=== PATIENT | male | born 1955 | race Caucasian/White ===

== ENCOUNTER 2017-02-04 21:58 | Inpatient (IN) | payer OTHER ==
[~2017-02-04] VITALS: Ht 180.3 cm; Wt 72.3 kg
[~2017-02-04 21:58] MED LIST: BACT800T5 PO; CEPH500C3 PO; Z.0.NO CURRENT MEDS
[2017-02-04 22:00] VITALS: BP 123/80; PULSE 80; RESP 16; TEMP 98.5; O2SAT 96
[2017-02-04 22:40] VITALS: BP 120/79; PULSE 78; RESP 16; O2SAT 98
--- NOTE | 2017-02-05 00:38 | PD ---
HPI Chief Complaint: Skin Problem Time Seen by Provider: 00:34 Travel History International Travel<30 days: No Contact w/Intl Traveler<30days: No Traveled to known affect area: No History of Present Illness HPI 61-year-old male with chronic recurrent left lower extremity cellulitis. Recurrence over the past several days. Patient has ulceration just proximal to the medial malleolus. Patient denies fever chills nausea vomiting ascending erythema or left groin lymphadenopathy. Patient is not diabetic. Patient has history of recurrent cellulitis of the lower extremity on the left ankle. Patient also has prior history of atrial fibrillation. Patient takes no blood thinning agents. PFS Past Medical History Narrative Medical Cellulitis atrial fibrillation; no tobacco use; nursing notes reviewed Atrial Fibrillation: Yes Cardiovascular Problems: Yes Diminished Hearing: No Past Surgical History Abdominal Surgery: No Cardiac Surgery: No Ear Surgery: No Endocrine Surgery: No Eye Surgery: No Oral Surgery: No Thoracic Surgery: No Other Surgery: Yes Social History Alcohol Use: No Tobacco Use: No Substance Use: No Allergies-Medications (Allergen,Severity, Reaction): Coded Allergies: vancomycin (Unverified Allergy, Severe, RASH, 02/04/17) Reported Meds & Prescriptions Reported Meds & Active Scripts Active Review of Systems Except as stated in HPI: all other systems reviewed are Neg Physical Exam Narrative GENERAL: Well-developed well-nourished male in no acute distress no respiratory distress SKIN: Warm and dry. HEAD: Normocephalic. EYES: No scleral icterus. No injection or drainage. NECK: Supple, trachea midline. No JVD or lymphadenopathy. CARDIOVASCULAR: Regular rate and rhythm without murmurs, gallops, or rubs. RESPIRATORY: Breath sounds equal bilaterally. No accessory muscle use. GASTROINTESTINAL: Abdomen soft, non-tender, nondistended. MUSCULOSKELETAL: No cyanosis, or edema. Attention left lower leg area of erythema and warmth with 3 cm x 2.5 cm superficial ulceration just proximal to the left medial malleolus. BACK: Nontender without obvious deformity. No CVA tenderness. Data Data Last Documented VS Vital Signs Date Time Temp Pulse Resp B/P (MAP) Pulse Ox O2 Delivery O2 Flow Rate FiO2 02/04/17 22:40 78 16 120/79 (93) 98 Room Air 02/04/17 22:00 98.5 Orders Orders Basic Metabolic Panel (Bmp) (02/05/17 00:34) Complete Blood Count With Diff (02/05/17 00:34) Blood Culture (02/05/17 00:34) Wound Culture And Gram Stain (02/05/17 00:34) Iv Access Insert/Monitor (02/05/17 00:34) Ketorolac Inj (Toradol Inj) (02/05/17 00:45) Clindamycin Inj (Cleocin Inj) (02/05/17 00:45) Ankle, Complete ([id number]) (02/05/17 ) Labs Laboratory Tests Test 02/05/17 00:45 White Blood Count 5.5 TH/MM3 Red Blood Count 4.23 MIL/MM3 Hemoglobin 13.3 GM/DL Hematocrit 38.3 % Mean Corpuscular Volume 90.5 FL Mean Corpuscular Hemoglobin 31.3 PG Mean Corpuscular Hemoglobin Concent 34.6 % Red Cell Distribution Width 13.2 % Platelet Count 222 TH/MM3 Mean Platelet Volume 9.3 FL Neutrophils (%) (Auto) 67.2 % Lymphocytes (%) (Auto) 21.0 % Monocytes (%) (Auto) 7.8 % Eosinophils (%) (Auto) 3.2 % Basophils (%) (Auto) 0.8 % Neutrophils # (Auto) 3.7 TH/MM3 Lymphocytes # (Auto) 1.2 TH/MM3 Monocytes # (Auto) 0.4 TH/MM3 Eosinophils # (Auto) 0.2 TH/MM3 Basophils # (Auto) 0.0 TH/MM3 CBC Comment DIFF FINAL Differential Comment Blood Urea Nitrogen 27 MG/DL Creatinine 1.13 MG/DL Random Glucose 91 MG/DL Calcium Level 8.5 MG/DL Sodium Level 138 MEQ/L Potassium Level 4.0 MEQ/L Chloride Level 104 MEQ/L Carbon Dioxide Level 26.4 MEQ/L Anion Gap 8 MEQ/L Estimat Glomerular Filtration Rate 66 ML/MIN MDM Medical Decision Making Medical Screen Exam Complete: Yes Emergency Medical Condition: Yes Medical Record Reviewed: Yes Interpretation(s) ankle xr: FINDINGS: There is diffuse soft tissue swelling and edema of the left ankle and visualized leg. There appears to be some posteromedial ulceration at the level of the ankle. There is an 11 mm area of cortical irregularity and focal adjacent trabecular lucency of the medial malleolus noted and an area of osteomyelitis is possible. Otherwise, there is mild, chronic appearing and diffuse periosteal reaction of the visualized right tibia and fibula, probably on the basis of chronic disease. CONCLUSION: 1. Diffuse soft tissue swelling/edema and an apparent posteromedial ulcer. 2. Small focus of osteomyelitis of the medial malleolus possible in the proper clinical setting. Mayito Vega MD on February 05, 2017 at 1:21 Board Certified Radiologist. This report was verified electronically. Vital Signs Date Time Temp Pulse Resp B/P (MAP) Pulse Ox O2 Delivery O2 Flow Rate FiO2 02/04/17 22:40 78 16 120/79 (93) 98 Room Air 02/04/17 22:00 98.5 80 16 123/80 (94) 96 Room Air CBC & BMP Diagram 02/05/17 00:45 Calcium Level 8.5 Differential Diagnosis Cellulitis infected stasis ulcer abscess osteomyelitis Narrative Course IV access obtained specimens collected and sent for resulting patient given clindamycin 900 mg IV piggyback Physician Communication Physician Communication call placed to [facility] Diagnosis Primary Impression: Cellulitis Qualified Codes: L03.116 - Cellulitis of left lower limb Additional Impression: Osteomyelitis Qualified Codes: M86.9 - Osteomyelitis, unspecified Admitting Information Admitting Physician Requests: Admit Calista Hutchinson MD Feb 05, 2017 00:38
[2017-02-05] MEDS ORDERED: KETOROLAC TROMETHAMINE 30 MG/ML (IVP) VIAL IVP ONE (00:45)
[2017-02-05] MEDS ORDERED: CLINDAMYCIN INJ 900 MG in SODIUM CHLORIDE 0.9% INJ 100 ML IV ONE (00:45)
--- NOTE | 2017-02-05 01:25 | RADRPT ---
EXAM DATE/TIME: 02/05/2017 00:57 [facility] COMPARISON: No previous studies available for comparison. INDICATIONS : Cellulitis. MEDICAL HISTORY : cellulitis of the left ankle SURGICAL HISTORY : None. ENCOUNTER: Initial ACUITY: >1 year PAIN SCORE: 6/10 LOCATION: Left ankle FINDINGS: There is diffuse soft tissue swelling and edema of the left ankle and visualized leg. There appears t o be some posteromedial ulceration at the level of the ankle. There is an 11 mm area of cortical irre gularity and focal adjacent trabecular lucency of the medial malleolus noted and an area of osteomyel itis is possible. Otherwise, there is mild, chronic appearing and diffuse periosteal reaction of the visualized right tibia and fibula, probably on the basis of chronic disease. CONCLUSION: 1. Diffuse soft tissue swelling/edema and an apparent posteromedial ulcer. 2. Small focus of osteomyelitis of the medial malleolus possible in the proper clinical setting. Mayito Vega MD on February 05, 2017 at 1:21 Board Certified Radiologist. This report was verified electronically.
[2017-02-05 01:29] LABS: AUTOMATED NEUTROPHIL # 3.7 TH/MM3 (1.8-7.7); BASOPHIL % 0.8 % (0.0-2.0); EOSINOPHIL # 0.2 TH/MM3 (0-0.4); EOSINOPHIL % 3.2 % (0.0-4.0); HEMATOCRIT 38.3 % (39.0-51.0); HEMO FLAGS DIFF FINAL; LYMPHOCYTE # 1.2 TH/MM3 (1.0-4.8); MEAN CELL VOLUME 90.5 FL (80.0-100.0); MEAN CORPUSCULAR HEMOGLOBIN 31.3 PG (27.0-34.0); MEAN CORPUSCULAR HGB CONC 34.6 % (32.0-36.0); MONO % 7.8 % (0.0-8.0); NEUT % 67.2 % (16.0-70.0); PLATELET COUNT 222 TH/MM3 (150-450); RED BLOOD COUNT 4.23 MIL/MM3 (4.50-5.90); RED CELL DISTRIBUTION WIDTH 13.2 % (11.6-17.2); WHITE BLOOD COUNT 5.5 TH/MM3 (4.0-11.0)
[2017-02-05 01:36] LABS: BICARBONATE 26.4 MEQ/L (21.0-32.0)
[2017-02-05] MEDS ORDERED: MORPHINE SULFATE 4 MG/ML INJ IV PUSH PRN (03:15)
[2017-02-05] MEDS ORDERED: ACETAMINOPHEN 325 MG TAB PO PRN (03:15)
[2017-02-05] MEDS ORDERED: MAGNESIUM HYDROXIDE SUSP 30 ML CUP PO PRN (03:15)
[2017-02-05] MEDS ORDERED: BISACODYL 10 MG SUPP RECTAL PRN (03:15)
[2017-02-05] MEDS ORDERED: LACTULOSE SYRUP 20 GM/30 ML CUP PO PRN (03:15)
[2017-02-05] MEDS ORDERED: ONDANSETRON HCL 4 MG/2 ML VIAL IVP PRN (03:15)
[2017-02-05] MEDS ORDERED: ACETAMINOPHEN/HYDROcodone 325 MG/5 MG TAB PO PRN (03:15)
[2017-02-05] MEDS ORDERED: SODIUM CHLORIDE 0.9% FLUSH 10 ML FLUSH IV FLUSH PRN (03:15)
[2017-02-05] MEDS ORDERED: SENNOSIDES 8.6 MG TAB PO PRN (03:15)
--- NOTE | 2017-02-05 03:55 | HHI.HP ---
HPI Service [facility] Primary Care Physician No Primary Care Physician Admission Diagnosis Diagnoses: (1) Cellulitis Diagnosis: Principal (2) Osteomyelitis Diagnosis: Principal (3) Dehydration Diagnosis: Principal Travel History International Travel<30 Days: No Contact w/Intl Traveler <30 Da: No Traveled to Known Affected Are: No History of Present Illness This is a 61-year-old male with a PMH of A. fib and Chronic Left Leg Cellulitis who presented to the ER with complaints of left leg redness/pain for 2-3 days. States has had chronic cellulitis of left leg/ankle for several years, normally well-controlled however has been getting progressively worse over last few days. Denies fever or chills. On arrival, BP 123/80, HR 80, O2 sat 96% on RA, Afebrile. CBC unremarkable. GFR 66. BUN 27. Ankle X-ray with diffuse soft tissue swelling/edema and apparent posterior medial ulcer, small focus of osteomyelitis of medial malleolus possible. S/p Blood Cultures and Clinda IV in ER. Review of Systems Except as stated in HPI: all other systems reviewed are Neg ROS: 14 point review of systems otherwise negative. Past Family Social History Past Medical History PMH: A. fib and Chronic Left Leg Cellulitis Past Surgical History PAST SURGICAL HISTORY: Left Leg Surgery Allergies: Coded Allergies: vancomycin (Unverified Allergy, Severe, RASH, 02/04/17) Family History PAST FAMILY HISTORY: Reviewed. No h/o DM or CAD Social History PAST SOCIAL HISTORY: Negative for alcohol, tobacco or drugs. Physical Exam Vital Signs Vital Signs Date Time Temp Pulse Resp B/P (MAP) Pulse Ox O2 Delivery O2 Flow Rate FiO2 02/04/17 22:40 78 16 120/79 (93) 98 Room Air 02/04/17 22:00 98.5 80 16 123/80 (94) 96 Room Air Physical Exam PE: GENERAL: Pleasant middle-aged white male in no acute distress. HEENT: PERRLA, EOMI. No scleral icterus or conjunctival pallor. No lid lag or facial droop. CARDIOVASCULAR: Regular rate and rhythm. No obvious murmurs to auscultation. No chest tenderness to palpation. RESPIRATORY: No obvious rhonchi or wheezing. Clear to auscultation. Breath sounds equal bilaterally. GASTROINTESTINAL: Abdomen soft, non-tender, nondistended. BS normal. MUSCULOSKELETAL: Extremities without clubbing, cyanosis, or edema. No obvious deformities. LLE w/ erythema/edema, +ulcer left ankle. Pulses intact. NEUROLOGICAL: Awake, alert and oriented x4. No focal neurologic deficits. Moving both upper and lower extremities spontaneously. Laboratory Laboratory Tests Test 02/05/17 00:45 White Blood Count 5.5 Red Blood Count 4.23 Hemoglobin 13.3 Hematocrit 38.3 Mean Corpuscular Volume 90.5 Mean Corpuscular Hemoglobin 31.3 Mean Corpuscular Hemoglobin Concent 34.6 Red Cell Distribution Width 13.2 Platelet Count 222 Mean Platelet Volume 9.3 Neutrophils (%) (Auto) 67.2 Lymphocytes (%) (Auto) 21.0 Monocytes (%) (Auto) 7.8 Eosinophils (%) (Auto) 3.2 Basophils (%) (Auto) 0.8 Neutrophils # (Auto) 3.7 Lymphocytes # (Auto) 1.2 Monocytes # (Auto) 0.4 Eosinophils # (Auto) 0.2 Basophils # (Auto) 0.0 CBC Comment DIFF FINAL Differential Comment Blood Urea Nitrogen 27 Creatinine 1.13 Random Glucose 91 Calcium Level 8.5 Sodium Level 138 Potassium Level 4.0 Chloride Level 104 Carbon Dioxide Level 26.4 Anion Gap 8 Estimat Glomerular Filtration Rate 66 Date/Time Source Procedure Growth Status 02/05/17 01:00 Blood Peripheral Aerobic Blood Culture Pending Received 02/05/17 01:00 Blood Peripheral Anaerobic Blood Culture Pending Received 02/05/17 02:05 Wound Ankle Gram Stain Pending Received 02/05/17 02:05 Wound Ankle Wound Culture Pending Received Result Diagram: 02/05/17 0045 02/05/175 Caprini VTE Risk Assessment Caprini VTE Risk Assessment: Mod/High Risk (score >= 2) Caprini Risk Assessment Model Point Value = 1 Point Value = 2 Point Value = 3 Point Value = 5 Age 41-60 Minor surgery BMI > 25 kg/m2 Swollen legs Varicose veins or History of unexplained or recurrent spontaneous Oral contraceptives or hormone replacement Sepsis (< 1 month) Serious lung disease, including pneumonia (< 1 month) Abnormal pulmonary function Acute myocardial infarction Congestive heart failure (< 1 month) History of inflammatory bowel disease Medical patient at bed rest Age 61-74 Arthroscopic surgery Major open surgery (> 45 min) Laparoscopic surgery (> 45 min) Malignancy Confined to bed (> 72 hours) Immobilizing plaster cast Central venous access Age >= 75 History of VTE Family history of VTE Factor V Leiden Prothrombin [id number] Lupus anticoagulant Anticardiolipin antibodies Elevated serum homocysteine Heparin-induced thrombocytopenia Other congenital or acquired thrombophilia Stroke (< 1 month) Elective arthroplasty Hip, pelvis, or leg fracture Acute spinal cord injury (< 1 month) Prophylaxis Regimen Total Risk Factor Score Risk Level Prophylaxis Regimen 0-1 Low Early ambulation 2 Moderate Order ONE of the following: *Sequential Compression Device (SCD) *Heparin 5000 units SQ BID 3-4 Higher Order ONE of the following medications: *Heparin 5000 units SQ TID *Enoxaparin/Lovenox 40 mg SQ daily (WT < 150 kg, CrCl > 30 mL/min) *Enoxaparin/Lovenox 30 mg SQ daily (WT < 150 kg, CrCl > 10-29 mL/min) *Enoxaparin/Lovenox 30 mg SQ BID (WT < 150 kg, CrCl > 30 mL/min) AND/OR *Sequential Compression Device (SCD) 5 or more Highest Order ONE of the following medications: *Heparin 5000 units SQ TID (Preferred with Epidurals) *Enoxaparin/Lovenox 40 mg SQ daily (WT < 150 kg, CrCl > 30 mL/min) *Enoxaparin/Lovenox 30 mg SQ daily (WT < 150 kg, CrCl > 10-29 mL/min) *Enoxaparin/Lovenox 30 mg SQ BID (WT < 150 kg, CrCl > 30 mL/min) AND *Sequential Compression Device (SCD) Assessment and Plan Problem List: (1) Cellulitis ICD Code: L03.90 - Cellulitis, unspecified Status: Acute (2) Osteomyelitis ICD Code: M86.9 - Osteomyelitis, unspecified Status: Acute (3) Dehydration ICD Code: E86.0 - Dehydration Assessment and Plan A/P: 1. Cellulitis: LLE. Recurrent. Progressive redness/pain x2-3 days, afebrile , no leukocytosis. S/p Blood Cultures, IV Clinda in ER, will follow up cultures , continue IV Abx. 2. Osteomyelitis: Left Ankle X-ray w/ diffuse soft tissue swelling/edema w/ ulcer and small focus of osteomyelitis of medial malleolus possible, images reviewed by me. S/p Blood Cultures and IV Abx as above, will follow and continue. Consult Ortho for further evaluation. 3. Dehydration: GFR 66. BUN 27, Creatinine normal. IVF for hydration, repeat labs in am. 4. DVT Prophylaxis: Heparin sq 5. Social work for d/c planning as needed. 6. Case discussed w/ ER physician at length. Physician Certification 2 Midnight Certification Type: Admission for Inpatient Services Order for Inpatient Services The services are ordered in accordance with Medicare regulations or non- Medicare payer requirements, as applicable. In the case of services not specified as inpatient-only, they are appropriately provided as inpatient services in accordance with the 2-midnight benchmark. Estimated LOS (days): 2 days is the estimated time the patient will need to remain in the hospital, assuming treatment plan goals are met and no additional complications. Post-Hospital Plan: Not yet determined Problem Qualifiers (1) Cellulitis: Qualified Codes: L03.116 - Cellulitis of left lower limb (2) Osteomyelitis: Qualified Codes: M86.9 - Osteomyelitis, unspecified Vania Watson MD Feb 05, 2017 03:55
[2017-02-05] MEDS ORDERED: SODIUM CHLORIDE 0.9% FLUSH 10 ML FLUSH IVF PRN (04:00)
[2017-02-05 05:00] VITALS: BP 119/84; PULSE 68; RESP 17; TEMP 96; O2SAT 98
[2017-02-05] MEDS: DOCUSATE SODIUM 50 MG/SENNA 8.6 MG TAB PO SCH ×2 (07:54→19:29)
[2017-02-05] MEDS: SODIUM CHLORIDE 0.9% FLUSH 10 ML FLUSH IV FLUSH SCH ×2 (07:55→19:30)
[2017-02-05] MEDS: HEPARIN SODIUM - SQ 10,000 UNITS/ML VIAL SQ SCH ×2 (07:55→19:29)
[2017-02-05 08:00] VITALS: BP 123/83; PULSE 85; RESP 16; TEMP 97; O2SAT 98
--- NOTE | 2017-02-05 08:29 | MB ---
cc: DANIEL DONOVAN DATE OF ADMISSION 02/05/2017 DATE OF CONSULTATION 02/05/2017 REASON FOR CONSULTATION Left ankle wound with possible osteomyelitis. CONSULTING PHYSICIAN MD Shirley NANO Lundberg is a 61-year-old male who has a history of atrial fibrillation. He has a history of chronic left ankle pain, swelling and intermittent wound. He has had this for several years. He has had an open wound over the ankle for several weeks. He has noticed increasing redness and pain. He presented to the emergency room for evaluation. He is currently awake and alert on the seventh floor. X-rays were concerning for possible osteomyelitis of the medial malleolus of the distal tibia. He is currently awake and alert. He denies any traumatic injuries. He states that previously he did not have medical insurance coverage so he treated the wounds with [id number] wound care. He denies any fevers or chills. PAST MEDICAL HISTORY ILLNESSES Atrial fibrillation. SURGERIES None. ALLERGIES VANCOMYCIN. MEDICATIONS Please see EMR for a complete list of inpatient medications. FAMILY HISTORY Non-contributory. SOCIAL HISTORY The patient denies alcohol, tobacco or drug use. REVIEW OF SYSTEMS The patient denies headache, visual changes, neck pain, chest pain, shortness of breath, abdominal pain, nausea or vomiting or recent weight loss or numbness or tingling of extremities. He complains of left ankle pain, swelling and redness. He has had an open wound for approximately three weeks. PHYSICAL EXAMINATION GENERAL: The patient is a pleasant 61-year-old male in no acute distress. He is awake and alert. He is alert and oriented x 3. VITAL SIGNS: Temperature 96.0, pulse 68, respirations 17, blood pressure 119/84. O2 sat is 98% on room air. HEAD: The patient is normocephalic. Pupils are equal. NECK: Soft and nontender. Trachea is midline. CHEST: The lungs are clear. ABDOMEN: Soft, nontender, nondistended. EXTREMITIES: Examination of the bilateral upper extremities reveals no obvious pain or deformity with shoulder, elbow or wrist motion. He has intact sensation to all fingers, good capillary refill in all fingers. Radial pulses are palpable. He does have a skin lesion on his left forearm. Examination of the right leg reveals no pain with hip, knee or ankle motion. Skin is intact. Dorsalis pedis pulse is palpable. Sensation is intact. Examination of the left leg reveals no significant pain with hip, knee or ankle motion. He does have some cellulitis over the medial aspect of his ankle region. There is a 2 cm x 3 cm open wound. There appears to be deep granulation tissue present. There is no obvious purulent drainage noted. Dorsalis pedis pulse is palpable. X-RAYS X-rays of the left ankle were reviewed. There was some soft tissue swelling noted. There is periosteal reaction along the medial malleolus consistent with possible osteomyelitis. IMPRESSION 1. Left ankle cellulitis. 2. Left ankle open wound. 3. Possible left ankle osteomyelitis. 4. Left arm skin lesion. PLAN The treatment options were discussed with the patient. In regards to his left ankle, I would recommend MRI to evaluate for osteomyelitis of the tibia. If he has significant osteomyelitis he may need surgical debridement of the tibia. I would also recommend a wound care consultation for wound care treatment of the open wound. I instructed the patient to seek a primary care physician and possibly a professor criminal justice as an outpatient to evaluate the left arm skin lesion. I will follow the patient while he is in the hospital. He may need a course of IV antibiotics if he does have osteomyelitis of the tibia. All questions were answered. A mid-level provider in my office, nurse practitioner or PA, may see this patient on a follow-up basis and continue to implement the objective of this plan including: Starting or adjusting medications, injections of muscle, tendon, bursa or joints, cast application, orthotic or brace application, physical therapy, further radiographic studies including x-ray, MRI, CT, ultrasounds or bone scan, vascular studies, neurologic studies, or other specialist consultations, and proceeding with surgical management as appropriate. MD PRASHANT Leary/BIANCA /7:49 AM 7:55 AM
[2017-02-05] MEDS ORDERED: SODIUM CHLORIDE 0.9% FLUSH 10 ML FLUSH IV FLUSH SCH (09:00)
[2017-02-05 09:46] VITALS: O2SAT 94
[2017-02-05] MEDS: CLINDAMYCIN INJ 900 MG in SODIUM CHLORIDE 0.9% INJ 100 ML IV SCH ×2 (09:46→16:33)
[2017-02-05] MEDS ORDERED: GADODIAMIDE PF 287 MG/ML 5 ML VIAL (for RAD MRI) IVCONTRAST ONE (12:13)
--- NOTE | 2017-02-05 13:51 | RADRPT ---
EXAM DATE/TIME: 02/05/2017 11:58 [facility] COMPARISON: No previous studies available for comparison. INDICATIONS : Osteomyelitis. Sore on left medial side of ankle. CONTRAST: 15 cc Omniscan (gadodiamide) IV MEDICAL HISTORY : Afib, Chronic left leg cellititis. SURGICAL HISTORY : Left leg sx about 8 years ago. ENCOUNTER: Initial ACUITY: 1 month PAIN SCORE: 2/10 LOCATION: medial side of left ankle. TECHNIQUE: Multiplanar, multisequence MRI examination was performed without contrast and after the intravenous a dministration of gadolinium. FINDINGS: There is edema and cellulitis involving the medial aspect of the ankle but no evidence of osteomyelit is. There is no evidence of abscess. The tendons and ligaments are intact. No focal areas of marrow p lacement are identified. CONCLUSION: 1. Cellulitis without abscess or osteomyelitis. Kevna Pryor MD on February 05, 2017 at 13:42 Board Certified Radiologist. This report was verified electronically.
[2017-02-05 14:00] VITALS: BP 120/80; PULSE 86; RESP 16; TEMP 97; O2SAT 98
[2017-02-05 16:00] VITALS: BP 116/80; PULSE 88; RESP 16; TEMP 97.3; O2SAT 97
[2017-02-05 20:20] VITALS: BP 133/85; PULSE 78; RESP 18; TEMP 96.7; O2SAT 98
[2017-02-06] VITALS (7 sets, daily range): BP systolic 108–118; BP diastolic 70–83; PULSE 66–75; RESP 16–18; TEMP 96.9–97.3; O2SAT 95–99
[2017-02-06] MEDS: CLINDAMYCIN INJ 900 MG in SODIUM CHLORIDE 0.9% INJ 100 ML IV SCH ×2 (01:52→07:44)
--- NOTE | 2017-02-06 06:47 | PD.ORT.PN ---
Objective Vitals Vital Signs Date Time Temp Pulse Resp B/P (MAP) Pulse Ox O2 Delivery O2 Flow Rate FiO2 02/06/17 04:20 96.9 67 18 108/80 (89) 99 02/06/17 00:15 96.9 75 17 116/83 (94) 97 02/05/17 20:20 96.7 78 18 133/85 (101) 98 02/05/17 16:33 18 02/05/17 16:00 97.3 88 16 116/80 (92) 97 02/05/17 14:00 97.0 86 16 120/80 (93) 98 02/05/17 09:46 94 02/05/17 08:00 97.0 85 16 123/83 (96) 98 I/O 02/05/17 02/05/17 02/05/17 02/06/17 02/06/17 02/06/17 07:00 15:00 23:00 07:00 15:00 23:00 Intake Total 106 ml 706 ml 106 ml 240 ml Balance 106 ml 706 ml 106 ml 240 ml Intake Oral 600 ml 240 ml IV Total 106 ml 106 ml 106 ml # Voids 1 3 2 # Bowel Movements 1 1 Result Diagram: 02/05/17 0045 02/05/17 0045 Assessment & Plan Assessment and Plan MRI reviewed of left ankle--no evidence of osteomyelitis Consult wound care nurse and wound care physician for inpatient and outpatient wound management No orthopedic services necessary this time Please call with any further questions Basil Torres MD Feb 06, 2017 06:47
[2017-02-06] MEDS: SODIUM CHLORIDE 0.9% FLUSH 10 ML FLUSH IV FLUSH SCH ×2 (07:44→20:59)
[2017-02-06] MEDS: DOCUSATE SODIUM 50 MG/SENNA 8.6 MG TAB PO SCH ×2 (07:47→20:59)
[2017-02-06] MEDS: HEPARIN SODIUM - SQ 10,000 UNITS/ML VIAL SQ SCH ×2 (07:47→20:58)
[2017-02-06 07:56] LABS: AUTOMATED NEUTROPHIL # 4.4 TH/MM3 (1.8-7.7); BASOPHIL % 0.6 % (0.0-2.0); EOSINOPHIL # 0.2 TH/MM3 (0-0.4); EOSINOPHIL % 2.7 % (0.0-4.0); HEMATOCRIT 42.4 % (39.0-51.0); HEMO FLAGS DIFF FINAL; LYMPH % 21.5 % (9.0-44.0); LYMPHOCYTE # 1.4 TH/MM3 (1.0-4.8); MEAN CELL VOLUME 91.5 FL (80.0-100.0); MEAN CORPUSCULAR HGB CONC 33.9 % (32.0-36.0); MONO % 7.3 % (0.0-8.0); NEUT % 67.9 % (16.0-70.0); PLATELET COUNT 237 TH/MM3 (150-450); RED BLOOD COUNT 4.63 MIL/MM3 (4.50-5.90); RED CELL DISTRIBUTION WIDTH 13.1 % (11.6-17.2); WHITE BLOOD COUNT 6.5 TH/MM3 (4.0-11.0)
[2017-02-06 08:23] LABS: ANION GAP 7 MEQ/L (5-15); AST (GOT) 15 U/L (15-37); BICARBONATE 27.6 MEQ/L (21.0-32.0); BLOOD UREA NITROGEN 16 MG/DL (7-18); CHLORIDE 104 MEQ/L (98-107); GLOMERULAR FILTRATION RATE 79 ML/MIN (>89); POTASSIUM 3.6 MEQ/L (3.5-5.1); SODIUM (NA) 139 MEQ/L (136-145)
[2017-02-06 08:30] LABS: ALKALINE PHOSPHATASE 59 U/L (45-117); ALT (GPT) 19 U/L (12-78); TOTAL BILIRUBIN ADULT 0.6 MG/DL (0.2-1.0)
[2017-02-06] MEDS ORDERED: INFLUENZA VIRUS VACCINE (QUADRIVALENT) 0.5 ML SYR IM ONE (09:00)
[2017-02-06] MEDS ORDERED: PNEUMOCOCCAL POLYVALENT INJ 25 MCG/0.5 ML SYR IM ONE (10:00)
[2017-02-06] MEDS: SULFAMETHOXAZOLE-TRIMETHOPRIM DS 800-160 MG TAB PO SCH ×2 (15:00→20:58)
--- NOTE | 2017-02-06 16:53 | HHI.PR ---
Subjective Remarks Follow up for left lower ext cellulitis. Patient is doing well. Denies any chest pain, SOB, fever, chills. Objective Vitals Vital Signs Date Time Temp Pulse Resp B/P (MAP) Pulse Ox O2 Delivery O2 Flow Rate FiO2 02/06/17 15:06 95 02/06/17 12:00 97.0 69 16 118/70 (86) 97 02/06/17 08:00 97.3 66 16 110/72 (85) 96 02/06/17 04:20 96.9 67 18 108/80 (89) 99 02/06/17 00:15 96.9 75 17 116/83 (94) 97 02/05/17 20:20 96.7 78 18 133/85 (101) 98 I/O 02/05/17 02/05/17 02/05/17 02/06/17 02/06/17 02/06/17 07:00 15:00 23:00 07:00 15:00 23:00 Intake Total 106 ml 706 ml 106 ml 240 ml Balance 106 ml 706 ml 106 ml 240 ml Intake Oral 600 ml 240 ml IV Total 106 ml 106 ml 106 ml # Voids 1 3 2 # Bowel Movements 1 1 Result Diagram: 02/06/17 0710 02/06/17 0710 Imaging Last Impressions Ankle X-Ray 02/05/17 0000 Signed Impressions: Service Date/Time: Sunday, February 05, 2017 00:57 - CONCLUSION: 1. Diffuse soft tissue swelling/edema and an apparent posteromedial ulcer. 2. Small focus of osteomyelitis of the medial malleolus possible in the proper clinical setting. Mayito Vega MD Ankle MRI 02/05/17 0000 Signed Impressions: Service Date/Time: Sunday, February 05, 2017 11:58 - CONCLUSION: 1. Cellulitis without abscess or osteomyelitis. Kevan Pryor MD Objective Remarks GENERAL: Alert, Oriented x 3, NAD. SKIN: Warm and dry. HEAD: Normocephalic. EYES: No scleral icterus. No injection or drainage. NECK: Supple, trachea midline. No JVD or lymphadenopathy. CARDIOVASCULAR: Regular rate and rhythm without murmurs, gallops, or rubs. RESPIRATORY: Breath sounds equal bilaterally. No accessory muscle use. GASTROINTESTINAL: Abdomen soft, non-tender, nondistended. MUSCULOSKELETAL: No cyanosis, or edema. Left lower ext has a 5-6 cm diameter circular ulcerated lesion with clean borders without any discharge, there is surrounding erythema. BACK: Nontender without obvious deformity. No CVA tenderness. Procedures None. A/P Problem List: (1) Cellulitis ICD Code: L03.90 - Cellulitis, unspecified Status: Acute Assessment and Plan This is a 61-year-old male with a PMH of A. fib and Chronic Left Leg Cellulitis who presented to the ER with complaints of left leg redness/pain for 2-3 days prior to this admission. States has had chronic cellulitis of left leg/ankle for several years, normally well-controlled however has been getting progressively worse over last few days. Denies fever or chills. On arrival, BP 123/80, HR 80, O2 sat 96% on RA, Afebrile. CBC unremarkable. GFR 66. BUN 27. Initial X-ray indicated possibility of osteomyelitis of the left ankle. However, a follow up MRI indicated no evidence of osteomyelitis. Orthopedic surgery recommended wound care and non-surgical management. - Left lower ext cellulitis - Cx growing GNR and coag positive Staph. - D/C Clindamycin IV - Patient does not fever, chills, leukocytosis. There is no active drainage either. - Start PO Keflex 500mg Q6hrs and Bactrim DS Q12hrs. - aquaculture farmer has evaluated patient. Wound care physician has also been consulted. - History of Atrial fibrillation - Patient is not on any medications. Currently in NSR. Full code. Heparin SQ. Discharge plan: Depending on wound care physician input and updated culture results, probable discharge on 02/07/2017. Problem Qualifiers (1) Cellulitis: Qualified Codes: L03.116 - Cellulitis of left lower limb Layo Live DO Feb 06, 2017 16:53
--- NOTE | 2017-02-06 17:09 | PD.WCN.NOT ---
Wound Consult Description: Received consult for L ankle wound management from Doctor Basil Torres Communicated with: JOANIE Howard and Call placed to credit operations processor orthopedic Doctor for wound care orders Recommendation: Please cleanse wound to L medial ankle with wound cleanser and pat dry apply Calcium Alginate AG packed in wound bed and cover with dry 4x4 gauze pads. Secure dressing with rolled gauze and tape Change dressing every 2 days or PRN if saturated or dislodged. Additional Information: Patient seen on for evaluation of wound management to L ankle wound. Removed epifanio and gauze dressing in place to reveal wound to L medial ankle. Wound measures 2.2cm x 2 cmx ~0.6 cm. Wound bed presents with ~100% beefy red granulation tissue.Wound bed is moist with minimal sero-sanguinous drainage. Wound margins a steep, well defined and attached.Periwound presents with erythema, but no induration.Cleansed wound with normal saline and packed wound with saline moistened gauze and covered wound with dry 4x4 gauze pads, secured dressing with rolled gauze and tape.Wound care recommendations are noted above. Irene Padron [facility] Feb 06, 2017 17:09
[2017-02-06] MEDS: CEPHALEXIN MONOHYDRATE 500 MG CAP PO SCH (18:42)
[2017-02-07] MEDS: CEPHALEXIN MONOHYDRATE 500 MG CAP PO SCH ×2 (00:09→05:21)
[2017-02-07 00:20] VITALS: BP 111/76; PULSE 67; RESP 18; TEMP 97.7; O2SAT 98
[2017-02-07 04:20] VITALS: BP 106/67; PULSE 65; RESP 17; TEMP 96.5; O2SAT 96
[2017-02-07 08:00] VITALS: BP 93/57; PULSE 82; RESP 16; TEMP 97.3; O2SAT 96
[2017-02-07 08:17] VITALS: O2SAT 96
[2017-02-07] MEDS: HEPARIN SODIUM - SQ 10,000 UNITS/ML VIAL SQ SCH (08:53)
[2017-02-07] MEDS: SULFAMETHOXAZOLE-TRIMETHOPRIM DS 800-160 MG TAB PO SCH (08:53)
[2017-02-07] MEDS: SODIUM CHLORIDE 0.9% FLUSH 10 ML FLUSH IV FLUSH SCH (08:53)
[2017-02-07] MEDS ORDERED: LEVOFLOXACIN 750 MG TAB PO SCH (09:00)
[2017-02-07] MEDS: DOCUSATE SODIUM 50 MG/SENNA 8.6 MG TAB PO SCH (09:00)
[2017-02-07 12:00] VITALS: BP 102/69; PULSE 81; RESP 16; TEMP 97.1; O2SAT 95
[2017-02-07] MEDS ORDERED: LEVA750T9 PO (12:17)
[2017-02-07] MEDS ORDERED: SULF1TAB23 PO (12:17)
--- NOTE | 2017-02-07 12:21 | HHI.FF ---
Face to Face Verification Diagnosis: (1) Cellulitis Home Health Nursing Order: Medical education Signs/symptoms of disease process Wound care and dressing changes I have seen patient Toño Hawkins on 02/07/17. My clinical findings support the need for the requested home health care services because: Infection w/ risk of complications I certify that my clinical findings support that this patient is homebound because: Unsteady gait/balance Unsafe to leave home unassisted Need for psychosocial assistance Unable to use public transportation Layo Live DO Feb 07, 2017 12:21
--- NOTE | 2017-02-07 14:03 | HHI.DS ---
Discharge Summary Admission Date Feb 05, 2017 at 4:01 am Discharge Date: Feb 07, 2017 Admitting Diagnosis (1) Cellulitis ICD Code: L03.90 - Cellulitis, unspecified Diagnosis: Principal Status: Acute Procedures None. Brief History - From Admission This is a 61-year-old male with a PMH of A. fib and Chronic Left Leg Cellulitis who presented to the ER with complaints of left leg redness/pain for 2-3 days. States has had chronic cellulitis of left leg/ankle for several years, normally well-controlled however has been getting progressively worse over last few days. Denies fever or chills. On arrival, BP 123/80, HR 80, O2 sat 96% on RA, Afebrile. CBC unremarkable. GFR 66. BUN 27. Ankle X-ray with diffuse soft tissue swelling/edema and apparent posterior medial ulcer, small focus of osteomyelitis of medial malleolus possible. S/p Blood Cultures and Clinda IV in ER. CBC/BMP: 02/06/17 0710 02/06/17 0710 Significant Findings Laboratory Tests Test 02/05/17 00:45 02/06/17 07:10 Red Blood Count 4.23 MIL/MM3 (4.50-5.90) Hematocrit 38.3 % (39.0-51.0) Blood Urea Nitrogen 27 MG/DL (7-18) Estimat Glomerular Filtration Rate 66 ML/MIN (>89) 79 ML/MIN (>89) Albumin 3.3 GM/DL (3.4-5.0) Imaging Last Impressions Ankle X-Ray 02/05/17 0000 Signed Impressions: Service Date/Time: Sunday, February 05, 2017 00:57 - CONCLUSION: 1. Diffuse soft tissue swelling/edema and an apparent posteromedial ulcer. 2. Small focus of osteomyelitis of the medial malleolus possible in the proper clinical setting. Mayito Vega MD Ankle MRI 02/05/17 0000 Signed Impressions: Service Date/Time: Sunday, February 05, 2017 11:58 - CONCLUSION: 1. Cellulitis without abscess or osteomyelitis. Kevan Pryor MD PE at Discharge GENERAL: Alert, Oriented x 3, NAD. SKIN: Warm and dry. HEAD: Normocephalic. EYES: No scleral icterus. No injection or drainage. NECK: Supple, trachea midline. No JVD or lymphadenopathy. CARDIOVASCULAR: Regular rate and rhythm without murmurs, gallops, or rubs. RESPIRATORY: Breath sounds equal bilaterally. No accessory muscle use. GASTROINTESTINAL: Abdomen soft, non-tender, nondistended. MUSCULOSKELETAL: No cyanosis, or edema. Left lower ext has a 5-6 cm diameter circular ulcerated lesion with clean borders without any discharge, there is surrounding erythema. BACK: Nontender without obvious deformity. No CVA tenderness. Pt update on day of discharge Follow up for left lower ext cellulitis. Patient is doing well. No fever, chills. Wants to go home. Hospital Course This is a 61-year-old male with a PMH of A. fib and Chronic Left Leg Cellulitis who presented to the ER with complaints of left leg redness/pain for 2-3 days prior to this admission. States has had chronic cellulitis of left leg/ankle for several years, normally well-controlled however has been getting progressively worse over last few days. Denies fever or chills. On arrival, BP 123/80, HR 80, O2 sat 96% on RA, Afebrile. CBC unremarkable. GFR 66. BUN 27. Initial X-ray indicated possibility of osteomyelitis of the left ankle. However, a follow up MRI indicated no evidence of osteomyelitis. Orthopedic surgery recommended wound care and non-surgical management. - Left lower ext cellulitis - Cx growing Pseudomonas and Staph aureus. - D/C Clindamycin IV - Patient does not fever, chills, leukocytosis. There is no active drainage either. - Started patient on Levaquin 750mg Qday X 10 days and continue Bactrim DS BID X 10 days. - semiconductor assembler has evaluated patient. Wound care clinic referral on discharge. - History of Atrial fibrillation - Patient is not on any medications. Currently in NSR. Full code. Heparin SQ while in the hospital. Discharge with home health if it can be arranged. Pt Condition on Discharge: Good Discharge Disposition: Disch w/ Home Health Serv Discharge Time: <= 30 minutes Discharge Instructions DIET: Follow Instructions for: As Tolerated, No Restrictions Activities you can perform: Regular-No Restrictions Follow up Referrals: Wound Care Clinic - 3-5 Days New Medications: Levofloxacin (Levaquin) 750 Mg Tablet 750 MG PO DAILY for Infection, #10 TAB Sulfamethoxazole-Trimethoprim (Sulfamethoxazole-Trimethoprim) 800-160 Mg Tab 1 TAB PO Q12HR for Infection, #20 TAB Layo Live DO Feb 07, 2017 14:03
[2017-02-07] MEDS ORDERED: PNEUMOCOCCAL POLYVALENT INJ 25 MCG/0.5 ML SYR IM ONE (14:15)
[2017-02-07] MEDS ORDERED: INFLUENZA VIRUS VACCINE (QUADRIVALENT) 0.5 ML SYR IM ONE (14:15)
[2017-02-23] MEDS ORDERED: ZOSTINJ SQ ×2 (11:02→11:11)
== END 2017-02-07 15:58 | disposition home health service (06) | DRG 603 ==
LOC: NEPC 21:58 → NEDA 02-05 04:01 → HOCB 02-05 05:22
PROVIDERS: ADMIT Hospitalist; ATTEND Hospitalist
DX: L03.116 Cellulitis of left lower limb (principal); I48.91 Unspecified atrial fibrillation; E86.0 Dehydration; L98.9 Disorder of the skin and subcutaneous tissue, unspecified; B95.7 Other staphylococcus as the cause of diseases classified elsewhere; Z23 Encounter for immunization
CPT/HCPCS: 73610; 73723; 80048; 80053; 85025; 87040; 87070; 87147; 87186; 87205; 90686; 90732; 96365; 96366; 96375; A9579; J1644; J1885; Q2038